=== PATIENT | female | born 1965 | race Caucasian/White ===

== ENCOUNTER 2019-09-26 12:14 | Outpatient (CLI) | payer OTHER ==
[2019-09-26] MEDS ORDERED: LIDOCAINE-MPF 1%, 5ML ONE ×2 (12:42→13:31)
[2019-09-26] MEDS ORDERED: TRIAMCINOLONE ACETONIDE 40 MG/ML, 1ML ONE (12:42)
== END 2019-09-26 23:59 | disposition home or self-care (01) ==
LOC: RAD 12:14
PROVIDERS: ATTEND Orthopaedic Surgery
DX: M25.551 Pain in right hip (principal); M24.151 Other articular cartilage disorders, right hip
CPT/HCPCS: 73525; 73722; J3301